=== PATIENT | male | born 1945 | race Caucasian/White ===

== ENCOUNTER 2022-03-13 01:41 | Emergency (ER) | payer BC ==
[2022-03-13] MEDS ORDERED: Ondansetron 4 MG Tab.DIS PO ONE (02:23)
[2022-03-13] MEDS ORDERED: Sodium Chloride 0.9% 10 ML Syringe FLUSH PRN (02:30)
[2022-03-13] MEDS ORDERED: Pantoprazole 40 MG Vial IVPUSH ONE (02:34)
[2022-03-13 02:48] LABS: ESTIMATED GFR 63 mL/min (>60)
[2022-03-13] MEDS ORDERED: Iopamidol 612 MG/ML 100 ML Bottle IV SCH (03:00)
[2022-03-13] MEDS ORDERED: Sodium Chloride 0.9% 50 ML IV SCH (03:00)
[2022-03-13] MEDS: Sodium Chloride 0.9% 10 ML Syringe FLUSH ONE ×2 (03:07→03:17)
[2022-03-13] MEDS ORDERED: Prochlorperazine 10 MG/2 ML SDV IVPUSH ONE (03:19)
== END 2022-03-13 04:21 | disposition home or self-care (01) ==
LOC: JP.ED 01:41
DX: R10.13 Epigastric pain (principal); C91.10 Chronic lymphocytic leukemia of B-cell type not having achieved remission; R11.2 Nausea with vomiting, unspecified; N40.0 Benign prostatic hyperplasia without lower urinary tract symptoms; Z86.16 Personal history of COVID-19; Z88.1 Allergy status to other antibiotic agents; Z79.899 Other long term (current) drug therapy
CPT/HCPCS: 36415; 74177; 80053; 81001; 83690; 85025; 96374; 96375; 99284; C9113; J0780; J3490; Q0162; Q9967